=== PATIENT | female | born 1970 | race Two or more races ===

== ENCOUNTER 2018-10-16 06:10 | Emergency (ER) | payer OTHER ==
[~2018-10-16] VITALS: Ht 149.9 cm; Wt 62.6 kg
[2018-10-16 07:17] LABS: CALCIUM 8.5 mg/dL (8.5-10.1); CHLORIDE SERUM 104 mmol/L (98-107); CREATININE SERUM 0.8 mg/dL (0.6-1.0); GFR1 > 60 mL/min; GLUCOSE SERUM 127 mg/dL (74-106); POTASSIUM SERUM 3.1 mmol/L (3.5-5.1); SODIUM SERUM 139 mmol/L (136-145)
[2018-10-16 07:22] LABS: ALBUMIN 3.6 g/dL (3.4-5.0); ALKALINE PHOSPHATASE 100 U/L (46-116); ALT/SGPT 21 U/L (14-59); AST/SGOT 12 U/L (15-37); LIPASE 105 IU/L (73-393); TOTAL PROTEIN, SERUM 7.1 g/dL (6.4-8.2)
[2018-10-16 07:23] LABS: BASOPHIL % 0.2 % (0-2); PLATELET COUNT 209 x10^3mcL (130-400); RED CELL DISTRIBUTION WIDTH 12.4 % (11.5-14.5)
[2018-10-16 08:01] LABS: UA SPECIFIC GRAVITY >=1.030 (1.005-1.035); microscopic required? YES; urine erythrocyte NEGATIVE (NEGATIVE)
[2018-10-16 09:44] VITALS: BP 132/67
== END 2018-10-16 09:45 | disposition home or self-care (01) ==
LOC: ED 06:10
PROVIDERS: Emergency Medicine
DX: K29.70 Gastritis, unspecified, without bleeding (principal); I10 Essential (primary) hypertension; Z90.710 Acquired absence of both cervix and uterus
CPT/HCPCS: J1885; J2405; Q0092